=== PATIENT | male | born 1990 | race Caucasian/White ===

== ENCOUNTER 2018-02-07 04:11 | Emergency (ER) | payer SELFPAY ==
[~2018-02-07] VITALS: Ht 175.3 cm; Wt 85.3 kg
[2018-02-07 04:20] VITALS: Ht 175.3 cm; Wt 85.3 kg
[2018-02-07 05:03] LABS: CALCIUM 9.4 mg/dL (8.5-10.1); CARBON DIOXIDE 25.5 mmol/L (21-32); CHLORIDE SERUM 106 mmol/L (98-107); CREATININE SERUM 0.9 mg/dL (0.7-1.3); GFR1 > 60 mL/min; GLUCOSE SERUM 122 mg/dL (74-106); POTASSIUM SERUM 3.7 mmol/L (3.5-5.1); SODIUM SERUM 141 mmol/L (136-145)
[2018-02-07 05:15] LABS: ALBUMIN 4.1 g/dL (3.4-5.0); ALKALINE PHOSPHATASE 83 U/L (46-116); ALT/SGPT 35 U/L (16-63); AST/SGOT 22 U/L (15-37); BILIRUBIN TOTAL 0.35 mg/dL (0.20-1.00); FREE T4 0.91 ng/dL (0.76-1.46); TOTAL PROTEIN, SERUM 7.1 g/dL (6.4-8.2)
[2018-02-07 05:16] LABS: BASOPHIL % 0.3 % (0-2); PLATELET COUNT 189 x10^3mcL (130-400); RED CELL DISTRIBUTION WIDTH 13.4 % (11.5-14.5)
[2018-02-07 06:00] VITALS: BP 119/79
[2018-02-07 07:45] LABS: AMPHETAMINE QUAL UR NONE DETECTED (See below)
[2018-02-07 08:42] LABS: UA SPECIFIC GRAVITY <=1.005 (1.005-1.035); microscopic required? YES; urine erythrocyte 1+ (NEGATIVE)
== END 2018-02-07 06:00 | disposition home or self-care (01) ==
LOC: ED 04:11
PROVIDERS: Emergency Medicine
DX: T44.3X1A Poisoning by other parasympatholytics [anticholinergics and antimuscarinics] and spasmolytics, accidental (unintentional), initial encounter (principal); R00.2 Palpitations
CPT/HCPCS: 36415; 84439; G0480